=== PATIENT | female | born 1960 ===

== ENCOUNTER 2017-04-18 15:06 | Emergency (ER) | payer BC ==
[2017-04-18 15:40] VITALS: BP 107/70
--- NOTE | 2017-04-18 15:45 | UC ---
Throat Pain/Nasal Jai HPI - HPI Summary HPI Summary: 56 y/o female presents to the urgent care c/o sore throat, sinus congestion, and headache for 1 week. Pt states she has been exposed to strep. One of her children's had strep about 10 days ago. Robert is 5/10 with swallowing. Nasal congestion with green and brown nasal discharge. Pt deneis fever, sOB, cough, abdominal pain, N/V/D, chest pain. Pt has taking Tylenol PO to alleviate symptoms. - History of Current Complaint Chief Complaint: UCRespiratory Stated Complaint: FATIGUE, SORE THROAT Time Seen by Provider: 04/18/17 15:42 Hx Obtained From: Patient ?: No Onset/Duration: Gradual Onset, Lasting Weeks - 1 week, Still Present, Worse Since - 2 days Severity: Moderate Pain Intensity: 5 Pain Scale Used: 0-10 Numeric Cough: None Associated Signs & Symptoms: Positive: Dysphagia, Sinus Discomfort, Nasal Discharge. Negative: Fever - Epiglottits Risk Factors Epiglottis Risk Factors: Negative - Allergies/Home Medications Allergies/Adverse Reactions: Allergies Allergy/AdvReac Type Severity Reaction Status Date / Time Erythromycin Allergy GI Upset Verified 04/18/17 15:39 Home Medications: Home Medications ALPRAZolam TAB* [Xanax TAB*] 0.5 mg PO TID PRN 04/18/17 [History Confirmed 04/18] DULoxetine DR CAP* [Cymbalta CAP*] 60 mg PO DAILY 04/18/17 [History Confirmed ] PMH/Surg Hx/FS Hx/Imm Hx Previously Healthy: Yes Psychological History: Depression - Surgical History Surgical History: None - Family History Known Family History: Positive: Hypertension - Social History Occupation: Employed Full-time Lives: With Family Alcohol Use: None Substance Use Type: None Smoking Status (MU): Never Smoked Tobacco Review of Systems Constitutional: Negative Skin: Negative Eyes: Negative ENT: Sore Throat, Nasal Discharge, Sinus Congestion Respiratory: Negative Cardiovascular: Negative Gastrointestinal: Negative Genitourinary: Negative Motor: Negative Neurovascular: Negative Musculoskeletal: Negative Neurological: Headache Psychological: Negative Is Patient Immunocompromised?: No All Other Systems Reviewed And Are Negative: Yes Physical Exam Triage Information Reviewed: Yes Vital Signs: Initial Vital Signs Temp 98.4 F 04/18/17 15:34 Pulse 75 01/22/18 15:34 Resp 18 04/18/17 15:34 BP 107/70 04/18/17 15:34 Pulse Ox 97 04/18/17 15:34 - Additional Comments VITAL SIGNS: Reviewed. GENERAL: Patient is a well developed and nourished female who is sitting comfortable in the examining table. Patient is not in any acute respiratory distress. HEAD AND FACE: No signs of trauma. No ecchymosis, hematomas or skull depressions. Positive maxillary and frontal sinus tenderness on percussion with severe yellowish nasal discharge EYES: PERRLA, EOMI x 2, No injected conjunctiva, no nystagmus. No photophobia. EARS: Hearing grossly intact. Ear canals and tympanic membranes are within normal limits. MOUTH: Positive pharynx with erythema, exudates, palatal petechiae. B/L tonsillar enlargement with exudate. Uvula in midline. NECK: Supple, trachea is midline, Positive anterior cervical lymphadenopathy, no JVD, no carotid bruit, no c-spine tenderness, neck with full ROM. No meningeal signs, no Kernig's or brudzinskis signs. CHEST: Symmetric, no tenderness at palpation LUNGS: Clear to auscultation bilaterally. No wheezing or crackles. CVS: Regular rate and rhythm, S1 and S2 present, no murmurs or gallops appreciated. ABDOMEN: Soft, non-tender. No signs of distention. No rebound no guarding, and no masses palpated. Bowel sounds are normal. EXTREMITIES: FROM in all major joints, no edema, no cyanosis or clubbing. NEURO: Alert and oriented x 3. No acute neurological deficits. Speech is normal and follows commands. SKIN: Dry and warm Throat Pain/Nasal Course/Dx - Course Course Of Treatment: 56 y/o female presents to the urgent care c/o sore throat, sinus congestion, and headache for 1 week. Pt states she has been exposed to strep. One of her children's had strep about 10 days ago. Robert is 5/10 with swallowing. Nasal congestion with green and brown nasal discharge. Pt deneis fever, sOB, cough, abdominal pain, N/V/D, chest pain. Pt has taking Tylenol PO to alleviate symptoms. Hx obtained. Pt with pharyngitis and sinustis on examination.Rapid strep ordered: result: positive. Strep pharyngitis. Rx Amoxicillin PO and Ibuprofen PO for pain and swelling. PT Advised on hand washing to avoid spreading. Also advised to rest, eat well and avoid strenuous exercise. If symptoms do not improve or worsen advised to return to the urgent care or f/u with her PCP for further evaluation and treatment. PT understood and agreed - Differential Dx/Diagnosis Differential Diagnosis/HQI/PQRI: Influenza, Laryngitis, Mononucleosis, Otitis Media, Pharyngitis, Sinusitis, Tonsillitis, URI Provider Diagnoses: 1- Strep pharyngitis. 2- sinusitis Discharge - Discharge Plan Condition: Stable Disposition: HOME Prescriptions: Amoxicillin PO (*) [Amoxicillin 875 MG (*)] 875 mg PO BID #20 tab Fluticasone NASAL SPRAY 50MCG* [Flonase NASAL SPRAY 50MCG*] 2 spray BOTH NARES DAILY #1 btl Ibuprofen TAB* [Motrin TAB* 800 MG] 800 mg PO Q6H #20 tab Patient Education Materials: Strep Throat (ED) Referrals: Meena Chavez MD [Primary Care Provider] - If Needed Additional Instructions: 1- Please take the full course of the antibiotic to avoid resistance. 2-Please take ibuprofen PO q6-8hrs prn as instructed after meals to alleviate pain and swelling. Increase fluid intake, eat well, rest and avoid strenuous exercise 3-If symptoms do not improve or worsen please return to the urgent care or f/u with your PCP for further evaluation and treatment.
== END 2017-04-18 16:22 | disposition home or self-care (01) ==
LOC: UCCORT 15:06
DX: J02.0 Streptococcal pharyngitis (principal); J32.9 Chronic sinusitis, unspecified; Z20.89 Contact with and (suspected) exposure to other communicable diseases; F32.9 Major depressive disorder, single episode, unspecified
CPT/HCPCS: 87651; 99212; G0463

== ENCOUNTER 2017-05-14 10:43 | Emergency (ER) | payer BC ==
[2017-05-14 11:53] VITALS: BP 106/72
--- NOTE | 2017-05-14 12:08 | UC ---
Respiratory Complaint HPI - HPI Summary HPI Summary: Day 2 of sore throat-no fevers-- - History of Current Complaint Chief Complaint: UCGeneralIllness Stated Complaint: COLD SYMPTOMS Time Seen by Provider: 05/14/17 12:07 Hx Obtained From: Patient ?: No Onset/Duration: Sudden Onset, Lasting Days - 2, Still Present Timing: Constant Severity Initially: Moderate Severity Currently: Severe Pain Intensity: 9 Pain Scale Used: 0-10 Numeric Aggravating Factors: Nothing Alleviating Factors: Nothing Associated Signs And Symptoms: Positive: Negative - Allergies/Home Medications Allergies/Adverse Reactions: Allergies Allergy/AdvReac Type Severity Reaction Status Date / Time MS Erythromycin Allergy GI Upset Verified 05/14/17 11:53 [Erythromycin] PMH/Surg Hx/FS Hx/Imm Hx Previously Healthy: No Psychological History: Anxiety, Depression - Surgical History Surgical History: None - Family History Known Family History: Positive: Hypertension - Social History Occupation: Employed Full-time Lives: With Family Alcohol Use: None Substance Use Type: None Smoking Status (MU): Never Smoked Tobacco Review of Systems Constitutional: Negative Skin: Negative Eyes: Negative ENT: Sore Throat Respiratory: Negative Cardiovascular: Negative Gastrointestinal: Negative Genitourinary: Negative Motor: Negative Neurovascular: Negative Musculoskeletal: Negative Neurological: Negative Psychological: Negative Is Patient Immunocompromised?: No All Other Systems Reviewed And Are Negative: Yes Physical Exam Triage Information Reviewed: Yes Appearance: Well-Appearing, Well-Nourished, Pain Distress Vital Signs: Initial Vital Signs Temp 98.3 F 05/14/17 11:47 Pulse 71 05/14/17 11:47 Resp 12 05/14/17 11:47 BP 106/72 05/14/17 11:47 Pulse Ox 99 05/14/17 11:47 Vital Signs Reviewed: Yes Eye Exam: Normal Eyes: Positive: Conjunctiva Clear ENT Exam: Normal ENT: Positive: Normal ENT inspection, Hearing grossly normal, Pharyngeal erythema - beefy red, no pustula, white plaques, Uvula midline. Negative: Nasal congestion, Nasal drainage, Tonsillar swelling, Tonsillar exudate, Trismus , Hoarse voice, Dental tenderness, Sinus tenderness Dental Exam: Normal Neck exam: Normal Neck: Positive: Supple, Nontender, No Lymphadenopathy Respiratory Exam: Normal Respiratory: Positive: Chest non-tender, Lungs clear, Normal breath sounds, No respiratory distress, No accessory muscle use Cardiovascular Exam: Normal Cardiovascular: Positive: RRR, No Murmur, Pulses Normal, Brisk Capillary Refill Musculoskeletal Exam: Normal Musculoskeletal: Positive: Strength Intact, ROM Intact, No Edema Neurological Exam: Normal Neurological: Positive: Alert, Muscle Tone Normal Psychological Exam: Normal Skin Exam: Normal UC Diagnostic Evaluation - Laboratory O2 Sat by Pulse Oximetry: 99 Diagnostic Studies Comment: RST (-) Respiratory Course/Dx - Course Course Of Treatment: tylenol, ibuprofen, increase fluids, augmentin follow with pcp, may use diflucan prn s/s of vaginal yeast - Differential Dx/Diagnosis Provider Diagnoses: Bacterial pharyngitis Discharge - Discharge Plan Condition: Stable Disposition: HOME Prescriptions: Amoxicillin/Clavulanate TAB* [Augmentin TAB 875*] 875 mg PO BID #20 tab Fluconazole 150 MG (NF) [Diflucan 150 mg (NF)] 150 mg PO ONCE #1 tab Patient Education Materials: Pharyngitis (ED) Referrals: [facility] [[facility]] - If Needed Meena Chavez MD [Primary Care Provider] -
== END 2017-05-14 12:25 | disposition home or self-care (01) ==
LOC: UCCORT 10:43
DX: J02.9 Acute pharyngitis, unspecified (principal)
CPT/HCPCS: 87651; 99212; G0463

== ENCOUNTER 2018-06-16 15:25 | Emergency (ER) | payer BC ==
[2018-06-16 15:46] VITALS: BP 94/74
--- NOTE | 2018-06-16 16:08 | ED ---
Throat Pain/Nasal Congestion - HPI Summary HPI Summary: 57 yr old female with the complaint of runny nose post nasal drip and coughing for a couple weeks, and now frontal sinus pressure, and left ear pain for the past few days. No fever or chills. No other complaints. - History of Current Complaint Chief Complaint: UCRespiratory Time Seen by Provider: 06/16/18 15:57 - Allergies/Home Medications Allergies/Adverse Reactions: Allergies Allergy/AdvReac Type Severity Reaction Status Date / Time erythromycin base Allergy GI Upset Verified 06/16/18 15:41 Home Medications: Home Medications Bupropion XL* [Wellbutrin XL *] 450 mg DAILY 06/16/18 [History Confirmed ] cloNIDine TAB* [Catapres 0.1 MG TAB*] 1 tab BID PRN 06/16/18 [History Confirmed 06/16/18] PMH/Surg Hx/FS Hx/Imm Hx Infectious Disease History: No Infectious Disease History: Denies: Traveled Outside the [place] in Last 30 Days - Family History Known Family History: Positive: Hypertension - Social History Alcohol Use: None Substance Use Type: Reports: None Smoking Status (MU): Never Smoked Tobacco Review of Systems Constitutional: Negative Positive: Ear Ache, Nasal Discharge Positive: Cough All Other Systems Reviewed And Are Negative: Yes Physical Exam Triage Information Reviewed: Yes Vital Signs On Initial Exam: Initial Vitals Temp Pulse Resp BP Pulse Ox 98.4 F 72 16 94/74 100 06/16/18 15:41 06/16/18 15:41 06/16/18 15:41 06/16/18 15:41 06/16/18 15:41 Appearance: Positive: Well-Appearing, No Pain Distress Skin: Positive: Warm, Skin Color Reflects Adequate Perfusion Head/Face: Positive: Normal Head/Face Inspection Eyes: Positive: EOMI, NATE ENT: Positive: Pharyngeal erythema, Nasal congestion, Nasal drainage, TM red - left, Sinus tenderness Neck: Positive: Nontender Respiratory/Lung Sounds: Positive: Clear to Auscultation, Breath Sounds Present Cardiovascular: Positive: RRR. Negative: Murmur Abdomen Description: Negative: Distended Musculoskeletal: Positive: Strength/ROM Intact Neurological: Positive: Sensory/Motor Intact, Alert, Oriented to Person Place, Time, CN Intact II-III, Normal Gait, Speech Normal Diagnostics - Vital Signs Vital Signs Temp Pulse Resp BP Pulse Ox 06/16/18 15:41 98.4 F 72 16 94/74 100 - Laboratory Lab Statement: Any lab studies that have been ordered have been reviewed, and results considered in the medical decision making process. EENT Course/Dx - Course Course Of Treatment: 57 yr old with sinusitis, and also left OM Rx with augmentin - Diagnoses Provider Diagnoses: Sinusitis, Otitis media Discharge - Sign-Out/Discharge Documenting (check all that apply): Patient Departure All imaging exams completed and their final reports reviewed: No Studies - Discharge Plan Condition: Good Disposition: HOME Prescriptions: Amoxicillin/Clavulanate TAB* [Augmentin TAB 875*] 875 mg PO BID #20 tab Patient Education Materials: Sinusitis (ED) Referrals: Meena Chavez MD [Primary Care Provider] - 3 Days - Billing Disposition and Condition Condition: GOOD Disposition: Home
== END 2018-06-16 16:13 | disposition home or self-care (01) ==
LOC: UCCORT 15:25
DX: J32.9 Chronic sinusitis, unspecified (principal); H66.92 Otitis media, unspecified, left ear; Z88.1 Allergy status to other antibiotic agents
CPT/HCPCS: 99212; G0463